=== PATIENT | male | born 1960 | race Caucasian/White ===

== ENCOUNTER → 2016-08-16 | Outpatient (CLI) | payer MEDICAID ==
[~2016-08-16] MED LIST: ALPRAZOLAM1 MG PO; ASPIRIN CHILDRE81 MG PO; ATORVASTATIN CA20 MG PO; AURALGAN O10 ML/BOTT OT; BUPRENORPHINE H1 TA2 SL; EFFEXOR XR150 MG PO; FLEXERIL10 MG PO; HYDROCODONE1 TABLET PO; KEFLEX 500MG.500 MG PO; LIPITOR20 M1 PO; LOPRESSOR 25MG.25 M1 OR; LOPRESSOR 25MG.25 MG PO; LORTAB 5/500 501 TAB PO; LORTAB 500 MG-11 TAB PO; MEDROL 4MG. DOSE4 MG PO; MELOXICAM15 MG PO; MINOCYCLINE100 MG PO; OXYCODONE 5MG TA5 MG PO; OXYCODONE HYDRO10 M2 PO; PAROXETINE HCL40 MG PO; PAXIL20 MG PO; PERCOCET 5/3251 EACH PO; PREDNISONE 10MG10 MG PO; PREDNISONE 20MG20 MG PO; PRILOSEC OTC20 MG PO; ULTRACET 325 MG1 TAB PO; VICODIN 5/500 T1 TAB PO; XANAX1 M1 PO; ZITHROMAX Z PA250 MG PO; ZITHROMAX Z-PA250 M1 PO
== END ==
LOC: LAB 14:38
DX: E03.9 Hypothyroidism, unspecified (principal)

== ENCOUNTER → 2016-12-13 | Outpatient (CLI) | payer MEDICAID ==
[~2016-12-13] MED LIST changes: +BACTRIM DS 8001 TA1 PO; -LOPRESSOR 25MG.25 M1 OR
[2016-12-13 13:26] LABS: BUN 14 mg/dL (7-18); PROSTATE-SPECIFIC ANTIGEN F/U 0.2 ng/mL (0.0-4.0)
[2016-12-13 13:28] LABS: GFR (ESTIMATED) 88 ML/MIN (>60)
== END ==
LOC: LAB 11:25
PROVIDERS: Internal Medicine
DX: E78.5 Hyperlipidemia, unspecified (principal); E03.9 Hypothyroidism, unspecified; R39.12 Poor urinary stream